=== PATIENT | female | born 1980 | race African-American/Black ===

== ENCOUNTER 2016-08-11 08:43 | Emergency (ER) | payer OTHER ==
[~2016-08-11] VITALS: Ht 157.5 cm; Wt 81.6 kg
[2016-08-11 08:57] VITALS: BP 146/108
== END 2016-08-11 10:00 | disposition home or self-care (01) ==
LOC: ER 08:48
DX: H66.91 Otitis media, unspecified, right ear (principal); J02.9 Acute pharyngitis, unspecified; F17.210 Nicotine dependence, cigarettes, uncomplicated
CPT/HCPCS: 99283; J7040

== ENCOUNTER 2017-06-15 12:39 | Emergency (ER) | payer OTHER ==
[2017-06-15 12:45] VITALS: BP 165/120
[2017-06-15] MEDS ORDERED: NEOMYCIN-BACITRACIN-POLYM UNITDOSE PKG TOP OINT TOP ONE (13:30)
[2017-06-15] MEDS ORDERED: LIDOCAINE 1% HCL (LOCAL ANESTH.) INJ 20ML MDV IJ ONE (13:30)
[2017-06-15] MEDS ORDERED: TETANUS-DIPTH-ACEL PERTUSSIS 0.5ML SYRG IM ONE (14:00)
[2017-06-15] MEDS ORDERED: HYDROcodone-ACET 10/325MG TAB PO ONE (14:00)
== END 2017-06-15 15:17 | disposition home or self-care (01) ==
LOC: ER 12:39
DX: S01.511A Laceration without foreign body of lip, initial encounter (principal); F17.210 Nicotine dependence, cigarettes, uncomplicated; Y04.0XXA Assault by unarmed brawl or fight, initial encounter; Y93.01 Activity, walking, marching and hiking; Y92.89 Other specified places as the place of occurrence of the external cause; Y99.8 Other external cause status; Z23 Encounter for immunization
CPT/HCPCS: 12011; 70160; 90471; 90715; 99284; J2001

== ENCOUNTER 2017-06-24 12:43 | Emergency (ER) | payer OTHER ==
[~2017-06-24] VITALS: Ht 157.5 cm; Wt 77.1 kg
[2017-06-24 13:23] VITALS: BP 138/93
== END 2017-06-24 13:33 | disposition home or self-care (01) ==
LOC: ER 12:43
DX: S01.511D Laceration without foreign body of lip, subsequent encounter (principal); F17.210 Nicotine dependence, cigarettes, uncomplicated; X58.XXXD Exposure to other specified factors, subsequent encounter

== ENCOUNTER 2022-08-20 15:20 | Observation (INO) | payer MEDICAID ==
[~2022-08-20] VITALS: Ht 157.5 cm; Wt 99.8 kg
[2022-08-20 16:20] LABS: Basophils # (auto) 0 10 ^3/uL (0-0.2); Basophils % (auto) 0.4 % (0.0-2.0); Eosinophils # (auto) 0 10 ^3/uL (0-0.8); Eosinophils % (auto) 0.3 % (0.0-7.0); Hematocrit 29.9 % (36.0-46.0); Hemoglobin 10.3 g/dL (12.2-16.2); Lymphocytes # (auto) 2.3 10 ^3/uL (0.4-5.4); Lymphocytes % (auto) 25.1 % (10.0-50.0); Mean Corpuscular Hgb Conc. 34.3 g/dL (32.0-36.0); Mean Corpuscular Volume 90.6 fL (80.0-100.0); Monocytes # (auto) 0.7 10 ^3/uL (0-1.3); Monocytes % (auto) 8.2 % (0.0-12.0); Neutrophils # (auto) 5.9 10 ^3/uL (1.6-8.6); Red Cell Distribution Width 14.2 % (11.8-14.3)
[2022-08-20 16:39] LABS: Albumin 2.9 g/dL (3.4-5.0); Calcium 8.5 mg/dL (8.5-10.1); Potassium 3.7 mmol/L (3.5-5.1); Uric Acid 4.2 mg/dL (2.6-6.0)
[2022-08-20 16:42] LABS: BUN/Creatinine Ratio 13.8; Bilirubin, Total 0.2 mg/dL (0.2-1.0); Total Protein 6.9 g/dL (6.4-8.2)
[2022-08-20 16:47] LABS: Urine Bacteria NONE SEEN /hpf (None Seen); Urine Blood Negative /uL (Negative); Urine Mucus FEW (None Seen); Urine Specific Gravity 1.033 (1.001-1.035); Urine WBC <1 /hpf (0 - 5)
[2022-08-20 17:00] LABS: INR 0.92 (0.9-1.15); Partial Thromboplastin Time 28.4 sec (24.6-33.4)
[2022-08-20 17:01] LABS: Protein, Urine 34.6 mg/dL (0.0-11.9)
[2022-08-20] MEDS ORDERED: LABETALOL HCL 200 MG TAB PO ONE (18:00)
[2022-08-20] MEDS ORDERED: LABE100T4 PO (18:47)
[2022-08-20] MEDS ORDERED: PREN1TAB71 OR (18:47)
== END 2022-08-20 20:05 | disposition home or self-care (01) ==
LOC: LDRP 15:20 → UNDOADMOB 15:20 → LDRP 15:30
PROVIDERS: ADMIT Obstetrics & Gynecology; ATTEND Obstetrics & Gynecology
DX: O13.3 Gestational [pregnancy-induced] hypertension without significant proteinuria, third trimester (principal); Z3A.33 33 weeks gestation of pregnancy
CPT/HCPCS: 36415; 59025; 76818; 80053; 81001; 81002; 82570; 84156; 84550; 85025; 85610; 85730; 94760; G0378

== ENCOUNTER 2022-08-22 09:20 | Observation (INO) | payer MEDICAID ==
[~2022-08-22 09:20] MED LIST: LABE100T4 PO; PREN1TAB71 OR
[2022-08-22 15:07] LABS: Protein, Urine 19.3 mg/dL (0.0-11.9)
== END 2022-08-22 11:30 | disposition home or self-care (01) ==
LOC: LDRP 09:20 → UNDOADMOB 09:20 → LDRP 09:47
PROVIDERS: ADMIT Obstetrics & Gynecology; ATTEND Obstetrics & Gynecology
DX: O13.3 Gestational [pregnancy-induced] hypertension without significant proteinuria, third trimester (principal); Z3A.33 33 weeks gestation of pregnancy; Z98.891 History of uterine scar from previous surgery
CPT/HCPCS: 59025; 76818; 81002; 84156; 94760; G0378

== ENCOUNTER 2022-08-26 08:11 | Observation (INO) | payer MEDICAID | END 2022-08-26 10:10 | disposition home or self-care (01) | LOC: LDRP 08:11 → UNDOADMOB 08:11 → LDRP 08:42 | PROVIDERS: ADMIT Obstetrics & Gynecology; ATTEND Obstetrics & Gynecology | DX: O13.3 Gestational [pregnancy-induced] hypertension without significant proteinuria, third trimester (principal); O99.323 Drug use complicating pregnancy, third trimester; F12.90 Cannabis use, unspecified, uncomplicated; Z3A.34 34 weeks gestation of pregnancy | CPT/HCPCS: 59025; 76818; 81002; 94760; G0378 ==

== ENCOUNTER 2022-08-28 13:04 | Observation (INO) | payer MEDICAID ==
[~2022-08-28] VITALS: Ht 157.5 cm; Wt 104.3 kg
== END 2022-09-03 16:00 | disposition home or self-care (01) ==
LOC: LDRP 09-03 13:10
PROVIDERS: ADMIT Obstetrics & Gynecology; ATTEND Obstetrics & Gynecology
DX: O13.3 Gestational [pregnancy-induced] hypertension without significant proteinuria, third trimester (principal); O99.323 Drug use complicating pregnancy, third trimester; F12.90 Cannabis use, unspecified, uncomplicated; Z3A.35 35 weeks gestation of pregnancy
CPT/HCPCS: 59025; 76818; 81002; 94760; G0378

== ENCOUNTER 2022-09-06 13:03 | Observation (INO) | payer MEDICAID ==
[2022-09-06 15:01] LABS: Basophils # (auto) 0 10 ^3/uL (0-0.2); Basophils % (auto) 0.2 % (0.0-2.0); Eosinophils # (auto) 0 10 ^3/uL (0-0.8); Eosinophils % (auto) 0.5 % (0.0-7.0); Lymphocytes # (auto) 1.9 10 ^3/uL (0.4-5.4); Lymphocytes % (auto) 25.8 % (10.0-50.0); Mean Corpuscular Hemoglobin 30.6 pg (28.0-32.0); Mean Corpuscular Hgb Conc. 33.2 g/dL (32.0-36.0); Mean Corpuscular Volume 92.1 fL (80.0-100.0); Monocytes # (auto) 0.6 10 ^3/uL (0-1.3); Monocytes % (auto) 7.7 % (0.0-12.0); Neutrophils # (auto) 4.9 10 ^3/uL (1.6-8.6); Neutrophils % (auto) 65.8 % (37.0-80.0); Red Blood Cells 3.26 10^6/uL (4.0-5.20); Red Cell Distribution Width 14.2 % (11.8-14.3); White Blood Cell 7.4 10^3/uL (4.4-10.8)
[2022-09-06 15:03] LABS: Urine WBC None Seen /hpf (0 - 5)
[2022-09-06 15:10] LABS: Urine Bacteria NONE SEEN /hpf (None Seen); Urine Blood Negative /uL (Negative); Urine Specific Gravity 1.022 (1.001-1.035); Urine Sperm PRESENT /hpf (None Seen)
[2022-09-06 15:18] LABS: Albumin 2.6 g/dL (3.4-5.0); Calcium 7.7 mg/dL (8.5-10.1); Potassium 3.3 mmol/L (3.5-5.1)
[2022-09-06 15:22] LABS: INR 0.92 (0.9-1.15); Partial Thromboplastin Time 29.1 sec (24.6-33.4)
[2022-09-06 15:28] LABS: BUN/Creatinine Ratio 10.6; Bilirubin, Total 0.2 mg/dL (0.2-1.0); Total Protein 6.4 g/dL (6.4-8.2); Uric Acid 4.2 mg/dL (2.6-6.0)
[2022-09-06 15:28] LABS: Protein, Urine 22.1 mg/dL (0.0-11.9)
== END 2022-09-06 15:15 | disposition home or self-care (01) ==
LOC: UNDOADMOB 13:03 → LDRP 13:03
PROVIDERS: ADMIT Obstetrics & Gynecology; ATTEND Obstetrics & Gynecology
DX: O13.3 Gestational [pregnancy-induced] hypertension without significant proteinuria, third trimester (principal); Z3A.35 35 weeks gestation of pregnancy; Z98.891 History of uterine scar from previous surgery
CPT/HCPCS: 36415; 59025; 76818; 80053; 81001; 81002; 82570; 84156; 84550; 85025; 85610; 85730; 94760; G0378

== ENCOUNTER 2022-09-09 08:11 | Observation (INO) | payer MEDICAID | END 2022-09-10 10:37 | disposition home or self-care (01) | LOC: UNDOADMOB 09:47 → LDRP 09:47 → UNDOADMOB 09-10 08:48 → LDRP 09-10 08:54 | PROVIDERS: ADMIT Obstetrics & Gynecology; ATTEND Obstetrics & Gynecology | DX: O13.3 Gestational [pregnancy-induced] hypertension without significant proteinuria, third trimester (principal); Z3A.36 36 weeks gestation of pregnancy | CPT/HCPCS: 59025; 76818; 81002; 94760; G0378 ==

== ENCOUNTER 2022-09-12 09:59 | Observation (INO) | payer MEDICAID ==
[2022-09-19] MEDS ORDERED: LABE200T7 PO (11:16)
== END 2022-09-12 11:41 | disposition home or self-care (01) ==
LOC: UNDOADMOB 09:59 → LDRP 09:59
PROVIDERS: ADMIT Obstetrics & Gynecology; ATTEND Obstetrics & Gynecology
DX: O30.003 Twin pregnancy, unspecified number of placenta and unspecified number of amniotic sacs, third trimester (principal); O13.3 Gestational [pregnancy-induced] hypertension without significant proteinuria, third trimester; Z3A.36 36 weeks gestation of pregnancy; Z98.891 History of uterine scar from previous surgery
CPT/HCPCS: 59025; 76818; 81002; 94760; G0378

== ENCOUNTER → 2022-09-13 | Outpatient (CLI) | payer MEDICAID ==
[2022-09-14 07:06] LABS: RPR Non Reactive (Non Reactive)
== END | disposition home or self-care (01) ==
LOC: LAB 11:22
PROVIDERS: ATTEND Obstetrics & Gynecology
DX: Z11.3 Encounter for screening for infections with a predominantly sexual mode of transmission (principal); Z3A.00 Weeks of gestation of pregnancy not specified
CPT/HCPCS: 84112; 86592

== ENCOUNTER 2022-09-14 09:07 | Observation (INO) | payer MEDICAID ==
[2022-09-14 10:20] LABS: Basophils # (auto) 0 10 ^3/uL (0-0.2); Basophils % (auto) 0.3 % (0.0-2.0); Eosinophils # (auto) 0 10 ^3/uL (0-0.8); Eosinophils % (auto) 0.4 % (0.0-7.0); Hematocrit 29.8 % (36.0-46.0); Hemoglobin 9.9 g/dL (12.2-16.2); Lymphocytes # (auto) 2.1 10 ^3/uL (0.4-5.4); Lymphocytes % (auto) 26.7 % (10.0-50.0); Mean Corpuscular Hemoglobin 30.3 pg (28.0-32.0); Mean Corpuscular Hgb Conc. 33.2 g/dL (32.0-36.0); Mean Corpuscular Volume 91.1 fL (80.0-100.0); Monocytes # (auto) 0.6 10 ^3/uL (0-1.3); Monocytes % (auto) 7.8 % (0.0-12.0); Neutrophils # (auto) 5.2 10 ^3/uL (1.6-8.6); Neutrophils % (auto) 64.8 % (37.0-80.0); Nucleated Red Blood Cells % 0.1 %; Red Blood Cells 3.27 10^6/uL (4.0-5.20); Red Cell Distribution Width 14.7 % (11.8-14.3)
[2022-09-14 10:36] LABS: Albumin 2.6 g/dL (3.4-5.0); Calcium 8.2 mg/dL (8.5-10.1); Uric Acid 4.5 mg/dL (2.6-6.0)
[2022-09-14 10:38] LABS: INR 0.92 (0.9-1.15); Partial Thromboplastin Time 28.8 sec (24.6-33.4)
[2022-09-14 10:39] LABS: BUN/Creatinine Ratio 11.3; Bilirubin, Total 0.3 mg/dL (0.2-1.0); Potassium 3.8 mmol/L (3.5-5.1); Total Protein 6.1 g/dL (6.4-8.2)
[2022-09-14 10:57] LABS: Protein, Urine 25.8 mg/dL (0.0-11.9)
== END 2022-09-14 11:51 | disposition home or self-care (01) ==
LOC: LDRP 09:07
PROVIDERS: ADMIT Obstetrics & Gynecology; ATTEND Obstetrics & Gynecology
DX: O13.3 Gestational [pregnancy-induced] hypertension without significant proteinuria, third trimester (principal); O99.333 Smoking (tobacco) complicating pregnancy, third trimester; F17.200 Nicotine dependence, unspecified, uncomplicated; Z3A.36 36 weeks gestation of pregnancy
CPT/HCPCS: 36415; 59025; 80053; 81002; 82570; 84156; 84550; 85025; 85610; 85730; 94760; G0378

== ENCOUNTER 2022-09-16 09:16 | Observation (INO) | payer MEDICAID ==
[2022-09-16 11:18] LABS: Protein, Urine 14.1 mg/dL (0.0-11.9)
[2022-09-16 11:31] LABS: Protein, Urine 17.4 mg/dL (0.0-11.9)
[2022-09-16 11:33] LABS: Urine Bacteria NONE SEEN /hpf (None Seen); Urine Blood Negative /uL (Negative); Urine Specific Gravity 1.013 (1.001-1.035); Urine WBC 1 /hpf (0 - 5)
[2022-09-16 14:00] LABS: 24 Hr. Total Protein, Urine 208.8 mg/24 Hr (<149.1)
== END 2022-09-16 10:57 | disposition home or self-care (01) ==
LOC: LDRP 09:16 → UNDOADMOB 09:16 → LDRP 09:25 → UNDODISOB 10:57
PROVIDERS: ADMIT Obstetrics & Gynecology; ATTEND Obstetrics & Gynecology
DX: O14.93 Unspecified pre-eclampsia, third trimester (principal); O13.3 Gestational [pregnancy-induced] hypertension without significant proteinuria, third trimester; O99.333 Smoking (tobacco) complicating pregnancy, third trimester; F17.200 Nicotine dependence, unspecified, uncomplicated; Z3A.37 37 weeks gestation of pregnancy
CPT/HCPCS: 59025; 76818; 81001; 81002; 82570; 84156; 94760; G0378

== ENCOUNTER 2022-09-19 09:20 | Observation (INO) | payer MEDICAID | END 2022-09-19 11:23 | disposition home or self-care (01) | LOC: LDRP 09:20 → UNDOADMOB 09:20 → LDRP 09:22 → UNDODISOB 11:23 | PROVIDERS: ADMIT Obstetrics & Gynecology; ATTEND Obstetrics & Gynecology | DX: O13.3 Gestational [pregnancy-induced] hypertension without significant proteinuria, third trimester (principal); O99.333 Smoking (tobacco) complicating pregnancy, third trimester; F17.200 Nicotine dependence, unspecified, uncomplicated; Z3A.37 37 weeks gestation of pregnancy | CPT/HCPCS: 59025; 76818; 81002; G0378 ==

== ENCOUNTER 2022-09-23 08:17 | Observation (INO) | payer MEDICAID ==
[2022-09-23 09:06] LABS: Basophils # (auto) 0.1 10 ^3/uL (0-0.2); Basophils % (auto) 0.6 % (0.0-2.0); Eosinophils # (auto) 0.1 10 ^3/uL (0-0.8); Eosinophils % (auto) 0.6 % (0.0-7.0); Hematocrit 31.7 % (36.0-46.0); Hemoglobin 10.3 g/dL (12.2-16.2); Lymphocytes # (auto) 2.2 10 ^3/uL (0.4-5.4); Lymphocytes % (auto) 24.8 % (10.0-50.0); Mean Corpuscular Hemoglobin 29.9 pg (28.0-32.0); Mean Corpuscular Hgb Conc. 32.7 g/dL (32.0-36.0); Mean Corpuscular Volume 91.5 fL (80.0-100.0); Monocytes # (auto) 0.7 10 ^3/uL (0-1.3); Monocytes % (auto) 7.7 % (0.0-12.0); Neutrophils # (auto) 5.8 10 ^3/uL (1.6-8.6); Neutrophils % (auto) 66.3 % (37.0-80.0); Red Blood Cells 3.46 10^6/uL (4.0-5.20); Red Cell Distribution Width 14.2 % (11.8-14.3); White Blood Cell 8.8 10^3/uL (4.4-10.8)
[2022-09-23 09:13] LABS: Urine Blood Negative /uL (Negative); Urine Specific Gravity 1.014 (1.001-1.035)
[2022-09-23 09:20] LABS: INR 0.9 (0.9-1.15); Partial Thromboplastin Time 28.2 sec (24.6-33.4)
[2022-09-23 09:24] LABS: Albumin 2.6 g/dL (3.4-5.0); Calcium 8.1 mg/dL (8.5-10.1)
[2022-09-23 09:27] LABS: BUN/Creatinine Ratio 14.1; Bilirubin, Total 0.2 mg/dL (0.2-1.0); Total Protein 6.8 g/dL (6.4-8.2)
[2022-09-23 09:30] LABS: Protein, Urine 14.4 mg/dL (0.0-11.9)
[2022-09-23] MEDS ORDERED: LABE200T7 PO ×2 (11:16)
== END 2022-09-23 09:50 | disposition home or self-care (01) ==
LOC: LDRP 08:17 → UNDOADMOB 08:17 → LDRP 08:37 → UNDODISOB 09:50
PROVIDERS: ADMIT Obstetrics & Gynecology; ATTEND Obstetrics & Gynecology
DX: O13.3 Gestational [pregnancy-induced] hypertension without significant proteinuria, third trimester (principal); Z3A.38 38 weeks gestation of pregnancy; Z79.899 Other long term (current) drug therapy
CPT/HCPCS: 36415; 59025; 76818; 80053; 81002; 81003; 82570; 84156; 84550; 85025; 85610; 85730; 94760; G0378

== ENCOUNTER 2022-09-25 10:27 | Inpatient (IN) | payer MEDICAID ==
[2022-09-25] VITALS (12 sets, daily range): BP systolic 111–139; BP diastolic 60–88
[~2022-09-25] VITALS: Ht 157.5 cm; Wt 108.0 kg
[~2022-09-25 10:27] MED LIST changes: -LABE100T4 PO; +LABE200T7 PO
[2022-09-25] MEDS ORDERED: LACTATED RINGER'S 1,000 ML IV ONE (10:45)
[2022-09-25 11:02] LABS: Urine WBC None Seen /hpf (0 - 5)
[2022-09-25 11:14] LABS: Basophils # (auto) 0 10 ^3/uL (0-0.2); Basophils % (auto) 0.1 % (0.0-2.0); Eosinophils # (auto) 0 10 ^3/uL (0-0.8); Eosinophils % (auto) 0.5 % (0.0-7.0); Hematocrit 32.4 % (36.0-46.0); Hemoglobin 10.8 g/dL (12.2-16.2); Lymphocytes # (auto) 1.3 10 ^3/uL (0.4-5.4); Lymphocytes % (auto) 13.7 % (10.0-50.0); Mean Corpuscular Hemoglobin 30.3 pg (28.0-32.0); Mean Corpuscular Hgb Conc. 33.5 g/dL (32.0-36.0); Mean Corpuscular Volume 90.6 fL (80.0-100.0); Monocytes # (auto) 0.7 10 ^3/uL (0-1.3); Monocytes % (auto) 7.1 % (0.0-12.0); Neutrophils # (auto) 7.4 10 ^3/uL (1.6-8.6); Neutrophils % (auto) 78.6 % (37.0-80.0); Red Blood Cells 3.57 10^6/uL (4.0-5.20); Red Cell Distribution Width 14.3 % (11.8-14.3); White Blood Cell 9.5 10^3/uL (4.4-10.8)
[2022-09-25] MEDS ORDERED: LACTATED RINGER'S 1,000 ML IV SCH (11:15)
[2022-09-25] MEDS ORDERED: ceFAZolin 1GM/50ML 50 ML IV ONE (11:15)
[2022-09-25 11:21] LABS: Urine Bacteria FEW /hpf (None Seen); Urine Blood Negative /uL (Negative); Urine Specific Gravity 1.019 (1.001-1.035)
[2022-09-25 11:42] LABS: Albumin 2.5 g/dL (3.4-5.0); Calcium 8.2 mg/dL (8.5-10.1); Potassium 4.2 mmol/L (3.5-5.1)
[2022-09-25 11:46] LABS: Amphetamine Screen, Urine NEGATIVE (NEGATIVE); Barbiturate Scree,Urine NEGATIVE (NEGATIVE); Benzodiazephine Screen, Urine NEGATIVE (NEGATIVE); Cannabinoid Screen, Urine NEGATIVE (NEGATIVE); Cocaine Screen, Urine NEGATIVE (NEGATIVE); Opiate Scree,Urine NEGATIVE (NEGATIVE); Phencyclidine Screen, Urine NEGATIVE (NEGATIVE); Protein, Urine 24.1 mg/dL (0.0-11.9)
[2022-09-25 11:47] LABS: BUN/Creatinine Ratio 16.4; Bilirubin, Total 0.3 mg/dL (0.2-1.0); Total Protein 7.1 g/dL (6.4-8.2); Uric Acid 4.3 mg/dL (2.6-6.0)
[2022-09-25 11:54] LABS: INR 0.89 (0.9-1.15); Partial Thromboplastin Time 28.7 sec (24.6-33.4)
[2022-09-25] MEDS ORDERED: HYDR-4902 PO (12:12)
[2022-09-25] MEDS ORDERED: DOCU-94 PO (12:12)
[2022-09-25] MEDS ORDERED: IBUP800T27 PO (12:12)
[2022-09-25] MEDS ORDERED: FAMOTIDINE (10MG/ML) 2ML VL IV ONE (12:38)
[2022-09-25] MEDS ORDERED: MORPHINE SULF PF 5 MG/10 ML VIAL ONE (12:40)
[2022-09-25] MEDS ORDERED: fentaNYL CITRATE 100 MCG/2 ML VL ONE (12:40)
[2022-09-25] MEDS ORDERED: ONDANSETRON HCL 4 MG/2 ML VIAL ONE (12:42)
[2022-09-25] MEDS ORDERED: ePHEDrine SULFATE 50 MG/ML AMP ONE (12:42)
[2022-09-25] MEDS ORDERED: oxyTOCIN 10 UNIT/ML 10ML VIAL ONE (12:42)
[2022-09-25] MEDS ORDERED: KETOROLAC TROMETH 30 MG/ML 1ML VIAL ONE (12:42)
[2022-09-25] MEDS ORDERED: GLYCOPYRROLATE 0.2 MG/ML 1ML VIAL ONE (12:42)
[2022-09-25] MEDS ORDERED: ceFAZolin 1GM VL ONE (13:32)
[2022-09-25] MEDS ORDERED: GUM (CHEWING) 1 GUM CHEW CHEW ONE (14:15)
[2022-09-25] MEDS ORDERED: ceFAZolin 1GM/50ML 50 ML IV SCH (14:15)
[2022-09-25] MEDS ORDERED: ONDANSETRON HCL 4 MG/2 ML VIAL IV PRN ×2 (14:15→15:15)
[2022-09-25] MEDS ORDERED: LACT. RINGERS/OXYTOCIN 20UNITS 1,000 ML IV ONE (14:15)
[2022-09-25] MEDS ORDERED: diphenhdrAMINE HCL 50 MG/1 ML VL IV PRN (15:15)
[2022-09-25] MEDS ORDERED: DexAMETHasone SOD PHOS 10MG/1ML VIAL INJ IV PRN (15:15)
[2022-09-25] MEDS ORDERED: NALOXONE HCL 0.4 MG/ML VIAL IV PRN (15:15)
[2022-09-25] MEDS ORDERED: KETOROLAC TROMETH 30 MG/ML 1ML VIAL IV PRN (15:15)
[2022-09-25] MEDS ORDERED: ACETAMINOPHEN IV 1000 MG/100ML (10MG/ML) IV PRN (16:00)
[2022-09-25] MEDS: ceFAZolin 1GM/50ML 50 ML IV SCH (21:46)
[2022-09-25 23:00] LABS: Basophils # (auto) 0 10 ^3/uL (0-0.2); Basophils % (auto) 0.2 % (0.0-2.0); Eosinophils # (auto) 0 10 ^3/uL (0-0.8); Eosinophils % (auto) 0.6 % (0.0-7.0); Hematocrit 30.4 % (36.0-46.0); Lymphocytes # (auto) 1.6 10 ^3/uL (0.4-5.4); Lymphocytes % (auto) 20.8 % (10.0-50.0); Mean Corpuscular Hemoglobin 30.1 pg (28.0-32.0); Mean Corpuscular Hgb Conc. 32.9 g/dL (32.0-36.0); Mean Corpuscular Volume 91.6 fL (80.0-100.0); Monocytes # (auto) 0.4 10 ^3/uL (0-1.3); Monocytes % (auto) 5.8 % (0.0-12.0); Neutrophils # (auto) 5.6 10 ^3/uL (1.6-8.6); Neutrophils % (auto) 72.6 % (37.0-80.0); Red Blood Cells 3.32 10^6/uL (4.0-5.20); Red Cell Distribution Width 14.6 % (11.8-14.3); White Blood Cell 7.7 10^3/uL (4.4-10.8)
[2022-09-26] VITALS (18 sets, daily range): BP systolic 95–138; BP diastolic 37–84
[2022-09-26] MEDS ORDERED: HYDROcodone-ACET 5/325MG TAB PO PRN (05:00)
[2022-09-26] MEDS: SIMETHICONE 80 MG CHEWABLE TABLET PO SCH ×4 (06:00→22:06)
[2022-09-26] MEDS: ceFAZolin 1GM/50ML 50 ML IV SCH ×2 (06:01→14:01)
[2022-09-26 06:20] LABS: Basophils # (auto) 0 10 ^3/uL (0-0.2); Basophils % (auto) 0.3 % (0.0-2.0); Eosinophils # (auto) 0.1 10 ^3/uL (0-0.8); Eosinophils % (auto) 0.7 % (0.0-7.0); Hematocrit 27.1 % (36.0-46.0); Hemoglobin 9.3 g/dL (12.2-16.2); Lymphocytes # (auto) 1.5 10 ^3/uL (0.4-5.4); Lymphocytes % (auto) 20.3 % (10.0-50.0); Mean Corpuscular Hemoglobin 31.3 pg (28.0-32.0); Mean Corpuscular Hgb Conc. 34.3 g/dL (32.0-36.0); Mean Corpuscular Volume 91.1 fL (80.0-100.0); Monocytes # (auto) 0.6 10 ^3/uL (0-1.3); Monocytes % (auto) 8.1 % (0.0-12.0); Neutrophils # (auto) 5.4 10 ^3/uL (1.6-8.6); Neutrophils % (auto) 70.6 % (37.0-80.0); Red Blood Cells 2.97 10^6/uL (4.0-5.20); Red Cell Distribution Width 14.3 % (11.8-14.3); White Blood Cell 7.6 10^3/uL (4.4-10.8)
[2022-09-26 07:06] LABS: RPR Non Reactive (Non Reactive)
[2022-09-26] MEDS: DOCUSATE SOD 100 MG CAP PO SCH ×2 (10:00→22:06)
[2022-09-26] MEDS: FERROUS SULFATE 325mg EC TAB PO SCH ×2 (10:00→22:05)
[2022-09-26] MEDS: DOCUSATE CALCIUM 240 MG CAP PO SCH (10:00)
[2022-09-26] MEDS: HYDROcodone-ACET 5/325MG TAB PO PRN ×2 (13:31→19:41)
[2022-09-26] MEDS: IBUPROFEN 800 MG TAB PO PRN (18:03)
[2022-09-27] MEDS: HYDROcodone-ACET 5/325MG TAB PO PRN ×3 (00:47→21:35)
[2022-09-27 03:30] VITALS: BP 133/76
[2022-09-27] MEDS: SIMETHICONE 80 MG CHEWABLE TABLET PO SCH ×4 (05:41→21:35)
[2022-09-27] MEDS: IBUPROFEN 800 MG TAB PO PRN ×2 (07:28→18:55)
[2022-09-27 07:30] VITALS: BP 123/74
[2022-09-27] MEDS: FERROUS SULFATE 325mg EC TAB PO SCH ×2 (10:00→21:35)
[2022-09-27] MEDS: DOCUSATE SOD 100 MG CAP PO SCH ×2 (10:30→21:35)
[2022-09-27] MEDS: DOCUSATE CALCIUM 240 MG CAP PO SCH (10:30)
[2022-09-27 11:30] VITALS: BP 122/69
[2022-09-27 15:30] VITALS: BP 119/69
[2022-09-27 18:30] VITALS: BP 139/70
[2022-09-27 23:00] VITALS: BP 132/78
[2022-09-28 03:00] VITALS: BP 134/76
[2022-09-28] MEDS: IBUPROFEN 800 MG TAB PO PRN ×2 (03:11→10:40)
[2022-09-28] MEDS: SIMETHICONE 80 MG CHEWABLE TABLET PO SCH (05:42)
[2022-09-28] MEDS: HYDROcodone-ACET 5/325MG TAB PO PRN (05:42)
[2022-09-28 07:30] VITALS: BP 120/64
[2022-09-28] MEDS: DOCUSATE CALCIUM 240 MG CAP PO SCH (10:39)
[2022-09-28] MEDS: FERROUS SULFATE 325mg EC TAB PO SCH (10:40)
[2022-09-28] MEDS: DOCUSATE SOD 100 MG CAP PO SCH (10:40)
[2022-09-28 11:00] VITALS: BP 138/76
== END 2022-09-28 11:40 | disposition home or self-care (01) | DRG 539 ==
LOC: LDRP 10:40 → OBSVTOIN 11:15 → LDRP 14:23
PROVIDERS: ADMIT Obstetrics & Gynecology; ATTEND Obstetrics & Gynecology
PROC: 0UB70ZZ Excision of Bilateral Fallopian Tubes, Open Approach (ICD-10-PCS; 2022-09-25)
PROC: 10D00Z1 Extraction of Products of Conception, Low, Open Approach (ICD-10-PCS; principal; 2022-09-25 13:29)
DX: O34.211 Maternal care for low transverse scar from previous cesarean delivery (principal); O11.4 Pre-existing hypertension with pre-eclampsia, complicating childbirth; E66.01 Morbid (severe) obesity due to excess calories; Z20.822 Contact with and (suspected) exposure to COVID-19; O99.214 Obesity complicating childbirth; Z30.2 Encounter for sterilization; Z37.0 Single live birth; Z3A.38 38 weeks gestation of pregnancy
CPT/HCPCS: 36415; 59025; 80053; 80307; 81001; 81002; 82570; 84156; 84550; 85025; 85610; 85730; 86592; 86850; 86900; 86901; 87426; 94760; 94762; 96360; 96361; 96365; 96374; G0378; J0131; J0690; J1885; J2405; J2590; J3490